=== PATIENT | male | born 1965 | race Caucasian/White ===

== ENCOUNTER 2016-11-30 18:22 | Emergency (ER) | payer SELFPAY ==
--- OUTSIDE RECORDS SUMMARY | 2016-11-30 18:25 | XMS | Clinical Summary ---
:1965 Author Organization [facility] Address [address] [place] [address] Phone Care Team Providers Name Role Phone , Primary Care Provider Unavailable Allergies Active Allergy Reactions Severity Noted Date Comments Codeine Nausea And Vomiting 10/08/2016 Current Medications Prescription Sig. Disp. Refills Start Date End Date Status esomeprazole (NEXIUM) 40 Take 40 mg by mouth Active MG capsule daily. HYDROcodone-acetaminophen Take 1 tablet by Active (NORCO 10-325) 10-325 mg mouth every 6 (six) per tablet hours as needed for Pain. Active Problems Problem Noted Date Wound dehiscence 10/09/2016 Laceration of left Achilles tendon 08/28/2016 Achilles tendon rupture, right, initial encounter 08/28/2016 Encounters Date Type Specialty Care Team Description 10/28/2016 Scanned Document 10/09/2016 Hospital Encounter Alexis Carlton MD 10/09/2016 Procedure Pass 10/09/2016 Surgery Alexis Carlton ROTATIONALLISA Christianson MD EXTREMITY 10/08/2016 Anesthesia Event Ruben Adams MD 08/30/2016 Telephone Anesthesiology [facility] Follow Up Mely from Last 3 Months Social History Tobacco Use Types Packs/Day Years Used Date Current Every Day Smoker 1 3 Smokeless Tobacco: Never Used Tobacco Cessation:Ready to Quit: Yes Comments:handout to be given dos Alcohol Use Drinks/Week oz/Week Comments Yes 35 Cans of beer 21.0 Sex Assigned at Date Recorded Not on file Last Filed Vital Signs Vital Sign Reading Time Taken Blood Pressure 177/79 10/09/2016 3:35 PM CDT Pulse 92 10/09/2016 3:35 PM CDT Temperature 36.8 C (98.2 F) 10/09/2016 3:35 PM CDT Respiratory Rate 16 10/09/2016 3:35 PM CDT Oxygen Saturation 95% 10/09/2016 3:35 PM CDT Inhaled Oxygen Concentration - - Weight 86.9 kg (191 lb 9.6 oz) 10/09/2016 11:21 AM CDT Height 170.2 cm (5' 7") 10/09/2016 11:21 AM CDT Body Mass Index 30.01 10/09/2016 11:21 AM CDT Plan of Treatment Not on file Implants Implanted Type Area Branch [employer] Device Expiration Model / Identifier Date Serial / Lot Sys Bio Comp Achilles Mid Sub [id number] - [id number] [place] Left: ARTHREX 11/07/2017 [id number] / Implanted:Qty: 1 on 08/28/2016 by Alexis Carlton MD throscopy Ankle / [id number] Explanted Type Area Branch Retail Executive Device Expiration Date Model / Identifier Serial / Lot Sut Surg Stl 7 18g 18in Mp Ns Ds18 - [id number] [place] J &J:ETHICON DS18 / Explanted:Qty: 1 on 08/28/2016 throscopy / Procedures Procedure Name Priority Date/Time Associated Diagnosis Comments I&D,ABSCESS LEG 10/09/2016 12:30 PM Postoperative wound CDT infection, initial encounter Special Needs (PRONE POSITION) FLAP,ROTATIONAL-LOWER EXTREMITY 10/09/2016 12:30 PM CDT Postoperative wound infection, initial encounter Special Needs (PRONE POSITION) from Last 3 Months Results Anaerobic culture (10/09/2016 1:31 PM) Component Value Ref Range Result 2+ Prevotella species(A) Result 3+ Peptoniphilus asaccharolyticus(A) Specimen Performing Laboratory Wound - Leg, Left Lower [address] [address] Surgically obtained culture + gram stain (10/09/2016 1:31 PM) Component Value Ref Range Result 4+ Enterococcus species(A) Result 3+ Staphylococcus aureus(A) Result 3+ Beta-hemolytic streptococcus group C, by serological grouping(A) Result 2+ Viridans Streptococcus(A) Gram Stain Result 4+ WBCs Gram Stain Result 3+ gram positive cocci in pairs Specimen Performing Laboratory Wound - Leg, Left Lower [facility] [address] [address] Organism Antibiotic Method Susceptibility Enterococcus species Ampicillin <=2: Susceptible Enterococcus species Linezolid 2: Susceptible Enterococcus species Tetracycline Comment:This is a corrected result. Previous result was Resistant (>=16) on 10/13/2016 at 0811 CDT Enterococcus species Vancomycin 2: Susceptible Staphylococcus aureus Clindamycin 0.25: Susceptible Staphylococcus aureus Erythromycin <=0.25: Susceptible Staphylococcus aureus Linezolid 2: Susceptible Staphylococcus aureus Oxacillin <=0.25: Susceptible Staphylococcus aureus Rifampin <=0.5: Susceptible Staphylococcus aureus Tetracycline <=1: Susceptible Staphylococcus aureus Trimethoprim + Sulfamethoxazole <=10: Susceptible Staphylococcus aureus Vancomycin <=0.5: Susceptible from Last 3 Months
[2016-11-30 18:56] LABS: #Basophils 0.1 thou/uL (0.0-0.2); #Eosinphils 0.2 thou/uL (0.0-0.7); #Lymphocytes 1.5 thou/uL (1.20-3.40); #Monocytes 1.3 thou/uL (0.11-0.59); %Basophils 0.4 % (0.0-1.0); %Eosinophils 1.2 % (0.0-10.0); %Lymphocytes 9.9 % (21.0-51.0); %Monocytes 8.9 % (0.0-10.0); Hematocrit 51.5 % (42.0-52.0); Mean Platelet Volume 6.9 fL (7.4-10.4); Red Blood Cell (RBC) Count 5.25 mill/uL (4.70-6.10); White Blood Cell (WBC) Count 15.1 thou/uL (4.8-10.8)
[2016-11-30 19:22] LABS: ALT (SGPT) 10 U/L (8-55); AST (SGOT) 14 U/L (5-34); Alkaline Phosphatase 84 U/L (40-150); Anion Gap 17 mmol/L (10-20); BUN (Urea Nitrogen) 8 mg/dL (8.9-20.6); Bilirubin, Total 0.6 mg/dL (0.2-1.2); Calc. Creatinine Clearance 0 mL/min (70-130); Calcium 9.7 mg/dL (7.8-10.44); Carbon Dioxide 23 mmol/L (22-29); Chloride 103 mmol/L (98-107); Estimated GFR-MDRD 87; Globulin 4.5 g/dL (2.4-3.5)
== END 2016-11-30 21:32 | disposition home or self-care (01) ==
LOC: ERS 18:22
DX: M96.830 Postprocedural hemorrhage of a musculoskeletal structure following a musculoskeletal system procedure (principal); F41.9 Anxiety disorder, unspecified; F17.210 Nicotine dependence, cigarettes, uncomplicated
CPT/HCPCS: 36415; 80053; 85025; 99283

== ENCOUNTER 2021-11-20 10:51 | Inpatient (IN) | payer SELFPAY ==
[2021-11-20 13:42] LABS: Bilirubin Negative (Negative); Blood, Urine Negative (Negative); Clarity Clear (Clear); Glucose, Urine (Dipstick) Normal (Negative); Ketone, Urine Negative (Negative); Leukocyte Negative Leu/uL (Negative); Nitrite Negative (Negative); Protein, Urine (Dipstick) Negative (Neg-Trace); Urobilinogen Normal mg/dL (Less than 2); pH, Urine 6.5 (5.0-9.0)
[2021-11-20] MEDS ORDERED: Morphine 4 MG/ML VIAL ONE (14:05)
[2021-11-20] MEDS ORDERED: Heparin 1,000 UNITS/ML VIAL ONE (14:33)
[2021-11-20] MEDS ORDERED: Cefepime 2 GM VIAL ONE (17:33)
[2021-11-20] MEDS ORDERED: Fentanyl 100 MCG/2 ML VIAL ONE (17:36)
[2021-11-20] MEDS ORDERED: Ondansetron PF 4 MG/2 ML Vial IVP PRN (19:25)
[2021-11-20] MEDS ORDERED: Acetaminophen 325 MG TAB PO PRN (19:25)
[2021-11-20] MEDS ORDERED: Vancomycin HCl 1 GM in Sodium Chloride 0.9% 250 ML 250 ML IVPB SCH (19:25)
[2021-11-20] MEDS ORDERED: diphenhydrAMINE 25 MG CAP PO PRN (19:25)
[2021-11-20] MEDS ORDERED: HYDROcodone/Acetaminophen 7.5/325 mg Tablet PO PRN (19:25)
[2021-11-20] MEDS ORDERED: Polyethylene Glycol 3350 17 GM Packet PO PRN (19:28)
[2021-11-20] MEDS ORDERED: Dexamethasone 4 mg/ml Vial ONE (21:52)
[2021-11-20] MEDS ORDERED: metroNIDAZOLE 500 MG/100 ML BAG ONE (21:53)
[2021-11-21 00:04] LABS: SARS-CoV-2 NAA Rapid Test Not Detected (NotDetected)
[2021-11-21] MEDS: metroNIDAZOLE 500 MG in Premix Bag 1 BAG IVPB SCH ×4 (00:06→21:11)
[2021-11-21] MEDS: Docusate 100 MG CAP PO SCH ×3 (00:06→19:21)
[2021-11-21] MEDS: Dexamethasone 4 MG TAB PO SCH ×5 (00:06→19:21)
[2021-11-21] MEDS ORDERED: VANCOMYCIN 1.75 GM/500 ML BAG 1.75 GM in Premix Bag 1 BAG IVPB SCH (03:30)
[2021-11-21 04:22] LABS: PTT 29.1 sec (22.9-36.1); Prothrombin Time 13.4 sec (12.0-14.7)
[2021-11-21] MEDS: Cefepime 2 GM in Sodium Chloride 0.9% 100 ML IVPB SCH ×2 (05:18→15:25)
[2021-11-21] MEDS ORDERED: Thrombin 5000 UNITS/5 ML VIAL ONE (06:50)
[2021-11-21] MEDS ORDERED: HYDROmorphone 2 MG/ML VIAL ONE ×2 (07:07→10:48)
[2021-11-21] MEDS ORDERED: SUGAMMADEX SODIUM 200 MG/2 ML VIAL ONE (07:08)
[2021-11-21] MEDS ORDERED: Esmolol 100 MG/10 ML VIAL ONE ×2 (07:08→07:35)
[2021-11-21] MEDS ORDERED: Succinylcholine 200 MG/10 ml SYRINGE FS ONE (07:08)
[2021-11-21] MEDS ORDERED: Propofol 500 MG/50 ML VIAL ONE ×2 (07:08→08:37)
[2021-11-21] MEDS ORDERED: Rocuronium Bromide 50 MG/5 ML VIAL ONE (07:08)
[2021-11-21] MEDS ORDERED: Dexmedetomidine 200 MCG/2 ML VIAL ONE (07:27)
[2021-11-21] MEDS ORDERED: Phenylephrine 10 MG/ML VIAL ONE (07:35)
[2021-11-21] MEDS ORDERED: Lidocaine 1% MPF 2 ML VIAL ONE (07:35)
[2021-11-21] MEDS ORDERED: Labetalol HCl 100 MG/20 ML VIAL ONE (07:35)
[2021-11-21] MEDS ORDERED: Ondansetron PF 4 MG/2 ML Vial ONE (07:35)
[2021-11-21] MEDS ORDERED: Dexamethasone 20 MG/5 ML VIAL ONE (07:35)
[2021-11-21] MEDS ORDERED: Rocuronium Bromide 10 MG/ML (10ML VIAL) ONE (07:35)
[2021-11-21] MEDS ORDERED: Ketorolac Tromethamine 30 MG/ML VIAL ONE (07:35)
[2021-11-21] MEDS ORDERED: PROPOFOL 200 MG/20 ML VIAL ONE (07:35)
[2021-11-21] MEDS ORDERED: Ondansetron HCl/PF 4 MG/2 ML Vial IVP PRN (09:12)
[2021-11-21] MEDS ORDERED: HYDROmorphone 2 MG/ML VIAL SLOW IVP PRN (09:12)
[2021-11-21] MEDS ORDERED: Promethazine HCl 25 MG/ML VIAL IVPB PRN (09:12)
[2021-11-21] MEDS ORDERED: Meperidine HCl/PF 25 MG/ML VIAL SLOW IVP PRN (09:12)
[2021-11-21] MEDS ORDERED: Albumin 5% 250 ML ONE (09:37)
[2021-11-21] MEDS ORDERED: PROPOFOL 20 ML ONE (10:23)
[2021-11-21] MEDS: Sodium Chloride 0.9% 1,000 ML IV SCH (12:01)
[2021-11-21 12:38] LABS: #Basophils 0.1 thou/uL (0.0-0.2); #Lymphocytes 0.8 thou/uL (1.20-3.40); #Monocytes 0.3 thou/uL (0.11-0.59); %Basophils 0.7 % (0.0-1.0); %Eosinophils 0.2 % (0.0-10.0); %Lymphocytes 5.4 % (21.0-51.0); %Monocytes 1.8 % (0.0-10.0); Hemoglobin 15.1 g/dL (14.0-18.0); Mean Corpuscular HGB CONC 33.2 g/dL (32.0-36.0); Mean Corpuscular Hemoglobin 30.5 pg (27.0-31.0); Mean Platelet Volume 6.8 fL (7.4-10.4); Platelet Count 312 thou/uL (130-400); RBC Distribution Width 11.6 % (11.5-14.5); Red Blood Cell (RBC) Count 4.94 mill/uL (4.70-6.10); White Blood Cell (WBC) Count 15.2 thou/uL (4.8-10.8)
[2021-11-21 13:06] LABS: Anion Gap 15 mmol/L (10-20); BUN (Urea Nitrogen) 18 mg/dL (8.4-25.7); Calc. Creatinine Clearance 86 mL/min (70-130); Calcium 9.1 mg/dL (7.8-10.44); Carbon Dioxide 20 mmol/L (22-29); Chloride 103 mmol/L (98-107); Estimated GFR 82; Glucose 155 mg/dL (70-105); Potassium 4.4 mmol/L (3.5-5.1); Sodium 134 mmol/L (136-145)
[2021-11-21] MEDS: Fentanyl 100 MCG/2 ML VIAL SLOW IVP PRN ×2 (15:23→21:29)
[2021-11-21] MEDS: VANCOMYCIN 1.25 GM/250 ML BAG 1.25 GM in Premix Bag 1 BAG IVPB SCH (15:25)
[2021-11-21] MEDS: HYDROcodone/Acetaminophen 7.5/325 mg Tablet PO PRN ×2 (15:25→21:28)
[2021-11-21] MEDS: HYDROmorphone 0.5 MG/0.5 ML SYRINGE SLOW IVP PRN (19:21)
[2021-11-21] MEDS ORDERED: Pantoprazole 40 MG VIAL IVP SCH (20:45)
[2021-11-21] MEDS: hydrALAZINE 20 MG/ML VIAL SLOW IVP PRN (21:10)
[2021-11-22] MEDS: Dexamethasone 4 MG TAB PO SCH ×4 (02:29→21:35)
[2021-11-22] MEDS: VANCOMYCIN 1.25 GM/250 ML BAG 1.25 GM in Premix Bag 1 BAG IVPB SCH ×3 (02:29→18:46)
[2021-11-22] MEDS: HYDROmorphone 0.5 MG/0.5 ML SYRINGE SLOW IVP PRN ×2 (02:55→08:10)
[2021-11-22] MEDS: Sodium Chloride 0.9% 1,000 ML IV SCH ×3 (03:06→17:42)
[2021-11-22] MEDS: HYDROcodone/Acetaminophen 7.5/325 mg Tablet PO PRN ×2 (04:19→14:14)
[2021-11-22] MEDS: Cefepime 2 GM in Sodium Chloride 0.9% 100 ML IVPB SCH ×2 (04:20→17:42)
[2021-11-22] MEDS: Fentanyl 100 MCG/2 ML VIAL SLOW IVP PRN (04:43)
[2021-11-22] MEDS: metroNIDAZOLE 500 MG in Premix Bag 1 BAG IVPB SCH ×3 (05:04→21:35)
[2021-11-22] MEDS: hydrALAZINE 20 MG/ML VIAL SLOW IVP PRN ×2 (06:24→22:00)
[2021-11-22] MEDS: Docusate 100 MG CAP PO SCH ×2 (08:12→21:35)
[2021-11-22] MEDS: Pantoprazole 40 MG VIAL IVP SCH (08:12)
[2021-11-22] MEDS ORDERED: HYDROmorphone 0.5 MG/0.5 ML SYRINGE SLOW IVP SCH (15:15)
[2021-11-22 16:43] LABS: Anion Gap 12 mmol/L (10-20); Carbon Dioxide 19 mmol/L (22-29); Chloride 107 mmol/L (98-107); Potassium 4.3 mmol/L (3.5-5.1); Sodium 134 mmol/L (136-145)
[2021-11-22 16:44] LABS: BUN (Urea Nitrogen) 20 mg/dL (8.4-25.7); Calc. Creatinine Clearance 93 mL/min (70-130); Calcium 8.7 mg/dL (7.8-10.44); Estimated GFR 87; Glucose 146 mg/dL (70-105)
[2021-11-23] MEDS: tiZANidine HCl 4 MG TAB PO PRN ×3 (00:49→15:57)
[2021-11-23] MEDS: Fentanyl 100 MCG/2 ML VIAL SLOW IVP PRN ×3 (00:49→20:25)
[2021-11-23] MEDS: hydrALAZINE 20 MG/ML VIAL SLOW IVP PRN (01:16)
[2021-11-23] MEDS: Dexamethasone 4 MG TAB PO SCH ×4 (03:09→20:24)
[2021-11-23] MEDS: Sodium Chloride 0.9% 1,000 ML IV SCH ×2 (03:29→17:00)
[2021-11-23] MEDS: HYDROcodone/Acetaminophen 7.5/325 mg Tablet PO PRN ×3 (03:30→17:03)
[2021-11-23] MEDS: Cefepime 2 GM in Sodium Chloride 0.9% 100 ML IVPB SCH ×2 (05:46→17:00)
[2021-11-23] MEDS: VANCOMYCIN 1.25 GM/250 ML BAG 1.25 GM in Premix Bag 1 BAG IVPB SCH ×2 (05:47→17:35)
[2021-11-23] MEDS: metroNIDAZOLE 500 MG in Premix Bag 1 BAG IVPB SCH ×3 (06:14→22:32)
[2021-11-23] MEDS: Amlodipine 5 MG TAB PO SCH (08:55)
[2021-11-23] MEDS: Docusate 100 MG CAP PO SCH ×2 (08:55→20:24)
[2021-11-23] MEDS: Pantoprazole 40 MG VIAL IVP SCH (08:56)
[2021-11-23 14:03] LABS: Hemoglobin 15.8 g/dL (14.0-18.0); Mean Corpuscular HGB CONC 33.2 g/dL (32.0-36.0); Mean Corpuscular Hemoglobin 31.4 pg (27.0-31.0); Mean Corpuscular Volume 94.4 fL (78.0-98.0); Mean Platelet Volume 7.4 fL (7.4-10.4); Platelet Count 331 thou/uL (130-400); RBC Distribution Width 12.1 % (11.5-14.5); Red Blood Cell (RBC) Count 5.02 mill/uL (4.70-6.10)
[2021-11-23 14:22] LABS: Lymphocytes 9 % (21-51); MDiff Complete? YES; Monocytes 1 % (0-10); Neutrophil 90 % (42-75); Platelet Morphology Comment Appears Adequate; RBC Morphology Normal
[2021-11-23 14:43] LABS: Anion Gap 18 mmol/L (10-20); BUN (Urea Nitrogen) 19 mg/dL (8.4-25.7); Calc. Creatinine Clearance 98 mL/min (70-130); Calcium 9.2 mg/dL (7.8-10.44); Carbon Dioxide 15 mmol/L (22-29); Chloride 106 mmol/L (98-107); Estimated GFR 95; Glucose 178 mg/dL (70-105); Potassium 4.2 mmol/L (3.5-5.1); Sodium 135 mmol/L (136-145)
[2021-11-24] MEDS: Dexamethasone 4 MG TAB PO SCH ×4 (02:26→19:40)
[2021-11-24] MEDS: Cefepime 2 GM in Sodium Chloride 0.9% 100 ML IVPB SCH ×2 (05:44→17:57)
[2021-11-24] MEDS: metroNIDAZOLE 500 MG in Premix Bag 1 BAG IVPB SCH ×3 (05:44→22:18)
[2021-11-24] MEDS: Sodium Chloride 0.9% 1,000 ML IV SCH ×2 (05:47→18:08)
[2021-11-24 07:26] LABS: #Lymphocytes 1.7 thou/uL (1.20-3.40); #Monocytes 1.4 thou/uL (0.11-0.59); #Neutrophils 15.4 thou/uL (1.40-6.50); %Basophils 0.2 % (0.0-1.0); %Eosinophils 0.2 % (0.0-10.0); %Monocytes 7.6 % (0.0-10.0); Hemoglobin 15.1 g/dL (14.0-18.0); Mean Corpuscular HGB CONC 33.5 g/dL (32.0-36.0); Mean Corpuscular Hemoglobin 31.6 pg (27.0-31.0); Mean Corpuscular Volume 94.3 fL (78.0-98.0); Mean Platelet Volume 7.4 fL (7.4-10.4); Platelet Count 317 thou/uL (130-400); RBC Distribution Width 11.7 % (11.5-14.5); Red Blood Cell (RBC) Count 4.77 mill/uL (4.70-6.10); White Blood Cell (WBC) Count 18.6 thou/uL (4.8-10.8)
[2021-11-24 07:48] LABS: Anion Gap 12 mmol/L (10-20); BUN (Urea Nitrogen) 19 mg/dL (8.4-25.7); Calc. Creatinine Clearance 109 mL/min (70-130); Calcium 8.7 mg/dL (7.8-10.44); Carbon Dioxide 21 mmol/L (22-29); Chloride 106 mmol/L (98-107); Estimated GFR 104; Glucose 152 mg/dL (70-105); Potassium 4.2 mmol/L (3.5-5.1); Sodium 135 mmol/L (136-145)
[2021-11-24 07:49] LABS: Vancomycin, Trough 12.4 ug/mL
[2021-11-24] MEDS ORDERED: Bisacodyl 5 MG TAB PO PRN (08:03)
[2021-11-24] MEDS ORDERED: Bisacodyl 5 MG TAB PO SCH (09:00)
[2021-11-24] MEDS: Docusate 100 MG CAP PO SCH ×2 (09:46→19:41)
[2021-11-24] MEDS: HYDROcodone/Acetaminophen 10/325 mg Tablet PO PRN ×3 (09:47→19:48)
[2021-11-24] MEDS: Amlodipine 5 MG TAB PO SCH (09:47)
[2021-11-24] MEDS: VANCOMYCIN 1.25 GM/250 ML BAG 1.25 GM in Premix Bag 1 BAG IVPB SCH ×3 (09:48→20:52)
[2021-11-24] MEDS: Pantoprazole 40 MG VIAL IVP SCH (09:49)
[2021-11-24] MEDS ORDERED: Amlodipine 5 MG TAB PO SCH (14:30)
[2021-11-24] MEDS: Morphine 2 MG/ML VIAL SLOW IVP PRN (18:02)
[2021-11-25] MEDS: Dexamethasone 4 MG TAB PO SCH ×4 (01:54→20:31)
[2021-11-25] MEDS: Cefepime 2 GM in Sodium Chloride 0.9% 100 ML IVPB SCH ×2 (05:05→17:44)
[2021-11-25] MEDS: Morphine 2 MG/ML VIAL SLOW IVP PRN ×2 (05:14→11:08)
[2021-11-25] MEDS: metroNIDAZOLE 500 MG in Premix Bag 1 BAG IVPB SCH ×3 (05:34→23:15)
[2021-11-25] MEDS: VANCOMYCIN 1.25 GM/250 ML BAG 1.25 GM in Premix Bag 1 BAG IVPB SCH ×2 (08:37→21:38)
[2021-11-25] MEDS: HYDROcodone/Acetaminophen 10/325 mg Tablet PO PRN ×3 (08:39→20:32)
[2021-11-25] MEDS: hydrALAZINE 20 MG/ML VIAL SLOW IVP PRN (08:40)
[2021-11-25] MEDS: Docusate 100 MG CAP PO SCH ×2 (08:40→20:31)
[2021-11-25] MEDS: Amlodipine 10 MG TAB PO SCH (08:40)
[2021-11-25] MEDS ORDERED: Magnesium Citrate 300 ML BOT PO SCH (08:45)
[2021-11-25] MEDS: Pantoprazole 40 MG VIAL IVP SCH (09:08)
[2021-11-25] MEDS ORDERED: Bisacodyl 5 MG TAB PO SCH (12:00)
[2021-11-25] MEDS: Sodium Chloride 0.9% 1,000 ML IV SCH ×2 (15:01→22:42)
[2021-11-25] MEDS: hydrALAZINE 25 MG TAB PO SCH ×2 (15:02→20:31)
[2021-11-26] MEDS: HYDROcodone/Acetaminophen 10/325 mg Tablet PO PRN ×5 (00:22→20:41)
[2021-11-26] MEDS: Dexamethasone 4 MG TAB PO SCH ×4 (02:58→20:41)
[2021-11-26] MEDS: Cefepime 2 GM in Sodium Chloride 0.9% 100 ML IVPB SCH ×2 (04:43→17:29)
[2021-11-26] MEDS: metroNIDAZOLE 500 MG in Premix Bag 1 BAG IVPB SCH ×3 (05:49→22:22)
[2021-11-26] MEDS: Amlodipine 10 MG TAB PO SCH (08:59)
[2021-11-26] MEDS: Docusate 100 MG CAP PO SCH ×2 (09:00→20:41)
[2021-11-26] MEDS: hydrALAZINE 25 MG TAB PO SCH ×3 (09:01→20:41)
[2021-11-26] MEDS: Pantoprazole 40 MG VIAL IVP SCH (09:01)
[2021-11-26] MEDS: VANCOMYCIN 1.25 GM/250 ML BAG 1.25 GM in Premix Bag 1 BAG IVPB SCH ×2 (09:16→20:42)
[2021-11-26] MEDS ORDERED: Nicotine 21 MG PATCH TOP SCH (09:45)
[2021-11-26] MEDS ORDERED: Nicotine 14 MG PATCH TD SCH (09:45)
[2021-11-26] MEDS: Sodium Chloride 0.9% 1,000 ML IV SCH (11:48)
[2021-11-26 19:52] LABS: Vancomycin, Trough 14.2 ug/mL
[2021-11-26] MEDS: tiZANidine HCl 4 MG TAB PO PRN (20:41)
[2021-11-26] MEDS: Morphine 2 MG/ML VIAL SLOW IVP PRN (21:52)
[2021-11-27] MEDS: Sodium Chloride 0.9% 1,000 ML IV SCH ×2 (00:35→04:23)
[2021-11-27] MEDS: HYDROcodone/Acetaminophen 10/325 mg Tablet PO PRN ×6 (00:45→21:00)
[2021-11-27] MEDS: Dexamethasone 4 MG TAB PO SCH ×3 (01:15→17:29)
[2021-11-27] MEDS: Cefepime 2 GM in Sodium Chloride 0.9% 100 ML IVPB SCH ×2 (04:20→17:28)
[2021-11-27] MEDS: tiZANidine HCl 4 MG TAB PO PRN ×3 (04:45→22:34)
[2021-11-27] MEDS: metroNIDAZOLE 500 MG in Premix Bag 1 BAG IVPB SCH ×3 (05:32→22:35)
[2021-11-27] MEDS: Docusate 100 MG CAP PO SCH ×2 (08:39→20:47)
[2021-11-27] MEDS: hydrALAZINE 25 MG TAB PO SCH ×3 (08:40→20:48)
[2021-11-27] MEDS: Amlodipine 10 MG TAB PO SCH (08:40)
[2021-11-27] MEDS: Nicotine 21 MG PATCH TD SCH (08:40)
[2021-11-27] MEDS: VANCOMYCIN 1.25 GM/250 ML BAG 1.25 GM in Premix Bag 1 BAG IVPB SCH ×2 (08:49→20:48)
[2021-11-28] MEDS: Sodium Chloride 0.9% 1,000 ML IV SCH ×2 (00:11→17:56)
[2021-11-28] MEDS: Dexamethasone 4 MG TAB PO SCH ×2 (00:29→04:55)
[2021-11-28] MEDS: HYDROcodone/Acetaminophen 10/325 mg Tablet PO PRN ×6 (00:29→22:36)
[2021-11-28] MEDS: Cefepime 2 GM in Sodium Chloride 0.9% 100 ML IVPB SCH ×2 (04:55→17:57)
[2021-11-28] MEDS: metroNIDAZOLE 500 MG in Premix Bag 1 BAG IVPB SCH ×3 (05:54→22:37)
[2021-11-28] MEDS: Docusate 100 MG CAP PO SCH ×2 (08:33→20:33)
[2021-11-28] MEDS: VANCOMYCIN 1.25 GM/250 ML BAG 1.25 GM in Premix Bag 1 BAG IVPB SCH ×2 (08:33→20:54)
[2021-11-28] MEDS: Amlodipine 10 MG TAB PO SCH (08:33)
[2021-11-28] MEDS: hydrALAZINE 25 MG TAB PO SCH ×3 (08:33→20:33)
[2021-11-28] MEDS: Nicotine 21 MG PATCH TD SCH (08:35)
[2021-11-28] MEDS: Dexamethasone 1 MG TAB PO SCH ×3 (11:42→22:36)
[2021-11-28 19:29] LABS: Vancomycin, Trough 11.2 ug/mL
[2021-11-28] MEDS: Vancomycin 1.5 GRAM/300 ML BAG 1.5 GM in Premix Bag 1 BAG IVPB SCH (20:32)
[2021-11-28] MEDS: tiZANidine HCl 4 MG TAB PO PRN (20:33)
[2021-11-29] MEDS: HYDROcodone/Acetaminophen 10/325 mg Tablet PO PRN ×4 (04:23→21:14)
[2021-11-29] MEDS: Cefepime 2 GM in Sodium Chloride 0.9% 100 ML IVPB SCH ×2 (04:23→17:44)
[2021-11-29] MEDS: Sodium Chloride 0.9% 1,000 ML IV SCH ×2 (04:30→21:16)
[2021-11-29] MEDS: Dexamethasone 1 MG TAB PO SCH ×4 (05:38→23:25)
[2021-11-29] MEDS: metroNIDAZOLE 500 MG in Premix Bag 1 BAG IVPB SCH ×3 (05:38→23:25)
[2021-11-29 06:49] LABS: SARS-CoV-2 NAA Rapid Test Not Detected (NotDetected)
[2021-11-29] MEDS: Nicotine 21 MG PATCH TD SCH (08:45)
[2021-11-29] MEDS: hydrALAZINE 25 MG TAB PO SCH ×3 (08:47→21:13)
[2021-11-29] MEDS: Amlodipine 10 MG TAB PO SCH (08:47)
[2021-11-29] MEDS: Docusate 100 MG CAP PO SCH ×2 (08:47→21:13)
[2021-11-29] MEDS: Vancomycin 1.5 GRAM/300 ML BAG 1.5 GM in Premix Bag 1 BAG IVPB SCH ×2 (08:49→21:16)
[2021-11-29] MEDS: tiZANidine HCl 4 MG TAB PO PRN (21:15)
[2021-11-30] MEDS: Cefepime 2 GM in Sodium Chloride 0.9% 100 ML IVPB SCH ×2 (04:19→17:10)
[2021-11-30] MEDS: metroNIDAZOLE 500 MG in Premix Bag 1 BAG IVPB SCH ×3 (06:12→21:12)
[2021-11-30] MEDS: HYDROcodone/Acetaminophen 10/325 mg Tablet PO PRN ×4 (06:13→21:13)
[2021-11-30] MEDS: Dexamethasone 1 MG TAB PO SCH ×3 (06:13→17:10)
[2021-11-30] MEDS: Nicotine 21 MG PATCH TD SCH (09:40)
[2021-11-30] MEDS: Amlodipine 10 MG TAB PO SCH (09:40)
[2021-11-30] MEDS: hydrALAZINE 25 MG TAB PO SCH ×3 (09:40→21:14)
[2021-11-30] MEDS: Docusate 100 MG CAP PO SCH ×2 (09:40→21:14)
[2021-11-30] MEDS: Sodium Chloride 0.9% 1,000 ML IV SCH ×2 (09:41→22:30)
[2021-11-30 13:42] VITALS: BMI 26.0
[2021-11-30 16:53] LABS: Vancomycin, Trough 8.4 ug/mL
[2021-11-30] MEDS: Vancomycin 1.5 GRAM/300 ML BAG 1.5 GM in Premix Bag 1 BAG IVPB SCH ×2 (17:18→18:03)
[2021-12-01] MEDS: Dexamethasone 1 MG TAB PO SCH ×2 (00:03→05:30)
[2021-12-01] MEDS: HYDROcodone/Acetaminophen 10/325 mg Tablet PO PRN ×4 (05:29→23:31)
[2021-12-01] MEDS: Cefepime 2 GM in Sodium Chloride 0.9% 100 ML IVPB SCH ×2 (05:29→16:56)
[2021-12-01] MEDS: Vancomycin 1.5 GRAM/300 ML BAG 1.5 GM in Premix Bag 1 BAG IVPB SCH ×2 (06:12→18:17)
[2021-12-01] MEDS: metroNIDAZOLE 500 MG in Premix Bag 1 BAG IVPB SCH ×4 (07:17→23:33)
[2021-12-01] MEDS: Amlodipine 10 MG TAB PO SCH (08:11)
[2021-12-01] MEDS: hydrALAZINE 25 MG TAB PO SCH ×3 (08:11→21:38)
[2021-12-01] MEDS: Docusate 100 MG CAP PO SCH ×2 (08:12→21:37)
[2021-12-01] MEDS: Nicotine 21 MG PATCH TD SCH (08:12)
[2021-12-01] MEDS: Sodium Chloride 0.9% 1,000 ML IV SCH (10:28)
[2021-12-01] MEDS: tiZANidine HCl 4 MG TAB PO PRN (21:37)
[2021-12-02] MEDS: HYDROcodone/Acetaminophen 10/325 mg Tablet PO PRN ×3 (05:09→20:16)
[2021-12-02] MEDS: Cefepime 2 GM in Sodium Chloride 0.9% 100 ML IVPB SCH ×2 (05:09→17:56)
[2021-12-02 05:30] LABS: #Eosinphils 0.4 thou/uL (0.0-0.7); #Lymphocytes 1.8 thou/uL (1.20-3.40); #Monocytes 1.4 thou/uL (0.11-0.59); #Neutrophils 9.2 thou/uL (1.40-6.50); %Basophils 0.2 % (0.0-1.0); %Eosinophils 3.5 % (0.0-10.0); %Lymphocytes 14.1 % (21.0-51.0); %Monocytes 10.6 % (0.0-10.0); %Neutrophils 71.6 % (42.0-75.0); Hemoglobin 14.4 g/dL (14.0-18.0); Mean Corpuscular HGB CONC 32.2 g/dL (32.0-36.0); Mean Corpuscular Hemoglobin 30.6 pg (27.0-31.0); Mean Corpuscular Volume 94.9 fL (78.0-98.0); Mean Platelet Volume 7.1 fL (7.4-10.4); Platelet Count 263 thou/uL (130-400); White Blood Cell (WBC) Count 12.9 thou/uL (4.8-10.8)
[2021-12-02 06:17] LABS: Anion Gap 10 mmol/L (10-20); BUN (Urea Nitrogen) 17 mg/dL (8.4-25.7); Calc. Creatinine Clearance 131 mL/min (70-130); Calcium 8.7 mg/dL (7.8-10.44); Carbon Dioxide 27 mmol/L (22-29); Chloride 104 mmol/L (98-107); Estimated GFR 109; Glucose 94 mg/dL (70-105); Potassium 4.3 mmol/L (3.5-5.1); Sodium 137 mmol/L (136-145)
[2021-12-02 06:27] LABS: Vancomycin, Trough 12.4 ug/mL
[2021-12-02] MEDS: Sodium Chloride 0.9% 1,000 ML IV SCH ×2 (06:42→14:22)
[2021-12-02] MEDS: Vancomycin 1.5 GRAM/300 ML BAG 1.5 GM in Premix Bag 1 BAG IVPB SCH (06:44)
[2021-12-02] MEDS: hydrALAZINE 25 MG TAB PO SCH ×3 (08:50→20:15)
[2021-12-02] MEDS: Amlodipine 10 MG TAB PO SCH (08:50)
[2021-12-02] MEDS: Nicotine 21 MG PATCH TD SCH (08:50)
[2021-12-02] MEDS: Docusate 100 MG CAP PO SCH ×2 (08:50→20:15)
[2021-12-02] MEDS: metroNIDAZOLE 500 MG in Premix Bag 1 BAG IVPB SCH ×2 (08:51→16:01)
[2021-12-02] MEDS: VANCOMYCIN 1.25 GM/250 ML BAG 1.25 GM in Premix Bag 1 BAG IVPB SCH ×2 (13:14→21:32)
[2021-12-02] MEDS: Morphine 2 MG/ML VIAL SLOW IVP PRN (21:31)
[2021-12-03] MEDS: tiZANidine HCl 4 MG TAB PO PRN (01:32)
[2021-12-03] MEDS: metroNIDAZOLE 500 MG in Premix Bag 1 BAG IVPB SCH ×3 (01:35→16:36)
[2021-12-03] MEDS: Sodium Chloride 0.9% 1,000 ML IV SCH ×2 (01:39→18:12)
[2021-12-03] MEDS: Cefepime 2 GM in Sodium Chloride 0.9% 100 ML IVPB SCH ×2 (05:22→17:58)
[2021-12-03] MEDS: HYDROcodone/Acetaminophen 10/325 mg Tablet PO PRN ×4 (05:29→20:38)
[2021-12-03] MEDS ORDERED: Activase 2 MG VIAL CATH SCH (06:15)
[2021-12-03] MEDS: VANCOMYCIN 1.25 GM/250 ML BAG 1.25 GM in Premix Bag 1 BAG IVPB SCH ×3 (07:23→20:37)
[2021-12-03] MEDS: Docusate 100 MG CAP PO SCH ×2 (09:10→20:37)
[2021-12-03] MEDS: hydrALAZINE 25 MG TAB PO SCH ×3 (09:10→20:37)
[2021-12-03] MEDS: Nicotine 21 MG PATCH TD SCH (09:10)
[2021-12-03] MEDS: Amlodipine 10 MG TAB PO SCH (09:10)
[2021-12-03 10:42] LABS: Vancomycin, Trough 9.8 ug/mL
[2021-12-04] MEDS: metroNIDAZOLE 500 MG in Premix Bag 1 BAG IVPB SCH ×4 (00:01→23:53)
[2021-12-04] MEDS: HYDROcodone/Acetaminophen 10/325 mg Tablet PO PRN ×5 (03:39→20:56)
[2021-12-04] MEDS: Cefepime 2 GM in Sodium Chloride 0.9% 100 ML IVPB SCH ×2 (04:19→17:34)
[2021-12-04 04:37] LABS: #Eosinphils 0.6 thou/uL (0.0-0.7); #Lymphocytes 1.5 thou/uL (1.20-3.40); #Monocytes 1.3 thou/uL (0.11-0.59); #Neutrophils 8.6 thou/uL (1.40-6.50); %Basophils 0.2 % (0.0-1.0); %Lymphocytes 12.3 % (21.0-51.0); %Monocytes 10.6 % (0.0-10.0); %Neutrophils 71.8 % (42.0-75.0); Hemoglobin 13.9 g/dL (14.0-18.0); Mean Corpuscular HGB CONC 32.1 g/dL (32.0-36.0); Mean Corpuscular Hemoglobin 30.6 pg (27.0-31.0); Mean Corpuscular Volume 95.3 fL (78.0-98.0); Mean Platelet Volume 7.1 fL (7.4-10.4); Platelet Count 276 thou/uL (130-400); RBC Distribution Width 12.3 % (11.5-14.5); Red Blood Cell (RBC) Count 4.55 mill/uL (4.70-6.10)
[2021-12-04 04:54] LABS: Vancomycin, Trough 16.6 ug/mL
[2021-12-04 04:55] LABS: Anion Gap 8 mmol/L (10-20); BUN (Urea Nitrogen) 22 mg/dL (8.4-25.7); Calc. Creatinine Clearance 131 mL/min (70-130); Carbon Dioxide 28 mmol/L (22-29); Chloride 101 mmol/L (98-107); Potassium 4.3 mmol/L (3.5-5.1); Sodium 133 mmol/L (136-145)
[2021-12-04 04:56] LABS: Calcium 8.7 mg/dL (7.8-10.44); Estimated GFR 109; Glucose 120 mg/dL (70-105)
[2021-12-04] MEDS: VANCOMYCIN 1.25 GM/250 ML BAG 1.25 GM in Premix Bag 1 BAG IVPB SCH ×3 (06:02→21:02)
[2021-12-04] MEDS: Sodium Chloride 0.9% 1,000 ML IV SCH ×2 (06:03→20:53)
[2021-12-04] MEDS: Amlodipine 10 MG TAB PO SCH (08:36)
[2021-12-04] MEDS: Docusate 100 MG CAP PO SCH ×2 (08:36→20:57)
[2021-12-04] MEDS: hydrALAZINE 25 MG TAB PO SCH ×3 (08:36→20:57)
[2021-12-04] MEDS: Nicotine 21 MG PATCH TD SCH (08:36)
[2021-12-04 20:52] LABS: Vancomycin, Trough 19.5 ug/mL
[2021-12-04] MEDS ORDERED: Calcium Carbonate 500 MG ChewTAB PO PRN (23:25)
[2021-12-05] MEDS: HYDROcodone/Acetaminophen 10/325 mg Tablet PO PRN ×4 (02:14→19:23)
[2021-12-05] MEDS ORDERED: Lidocaine 2% Viscous Solution 10 ML, Aluminum & Magnesium Hydroxide 30 ML SSW SCH (03:00)
[2021-12-05] MEDS: Cefepime 2 GM in Sodium Chloride 0.9% 100 ML IVPB SCH ×2 (04:51→16:25)
[2021-12-05] MEDS: VANCOMYCIN 1.25 GM/250 ML BAG 1.25 GM in Premix Bag 1 BAG IVPB SCH ×3 (05:42→21:34)
[2021-12-05] MEDS: Sodium Chloride 0.9% 1,000 ML IV SCH (07:46)
[2021-12-05] MEDS: hydrALAZINE 25 MG TAB PO SCH ×3 (08:28→20:59)
[2021-12-05] MEDS: Amlodipine 10 MG TAB PO SCH (08:28)
[2021-12-05] MEDS: Docusate 100 MG CAP PO SCH ×2 (08:28→20:59)
[2021-12-05] MEDS: Nicotine 21 MG PATCH TD SCH (08:28)
[2021-12-05] MEDS: metroNIDAZOLE 500 MG in Premix Bag 1 BAG IVPB SCH ×2 (09:06→17:05)
[2021-12-05] MEDS: Acetaminophen/Codeine 30-300mg Tablet PO PRN (20:58)
[2021-12-06] MEDS: HYDROcodone/Acetaminophen 10/325 mg Tablet PO PRN ×2 (00:04→08:59)
[2021-12-06] MEDS: metroNIDAZOLE 500 MG in Premix Bag 1 BAG IVPB SCH ×3 (00:04→15:07)
[2021-12-06] MEDS: Acetaminophen/Codeine 30-300mg Tablet PO PRN (01:08)
[2021-12-06] MEDS: VANCOMYCIN 1.25 GM/250 ML BAG 1.25 GM in Premix Bag 1 BAG IVPB SCH ×2 (05:28→12:38)
[2021-12-06] MEDS: Cefepime 2 GM in Sodium Chloride 0.9% 100 ML IVPB SCH (05:28)
[2021-12-06 06:07] LABS: #Eosinphils 0.5 thou/uL (0.0-0.7); #Lymphocytes 1.4 thou/uL (1.20-3.40); #Monocytes 1.2 thou/uL (0.11-0.59); #Neutrophils 6.7 thou/uL (1.40-6.50); %Basophils 0.4 % (0.0-1.0); %Eosinophils 5.1 % (0.0-10.0); %Lymphocytes 14.3 % (21.0-51.0); %Monocytes 12.5 % (0.0-10.0); %Neutrophils 67.8 % (42.0-75.0); Mean Corpuscular Hemoglobin 32.3 pg (27.0-31.0); Mean Platelet Volume 7.1 fL (7.4-10.4); Platelet Count 292 thou/uL (130-400); RBC Distribution Width 12.2 % (11.5-14.5); Red Blood Cell (RBC) Count 4.33 mill/uL (4.70-6.10); White Blood Cell (WBC) Count 9.9 thou/uL (4.8-10.8)
[2021-12-06 06:22] LABS: ALT (SGPT) 73 U/L (8-55); AST (SGOT) 27 U/L (5-34); Albumin 3.1 g/dL (3.5-5.0); Alkaline Phosphatase 123 U/L (40-110); Anion Gap 10 mmol/L (10-20); BUN (Urea Nitrogen) 23 mg/dL (8.4-25.7); Bilirubin, Total 0.3 mg/dL (0.2-1.2); Calc. Creatinine Clearance 122 mL/min (70-130); Calcium 8.9 mg/dL (7.8-10.44); Carbon Dioxide 28 mmol/L (22-29); Chloride 102 mmol/L (98-107); Estimated GFR 107; Globulin 3.2 g/dL (2.4-3.5); Glucose 112 mg/dL (70-105); Potassium 4.4 mmol/L (3.5-5.1); Protein, Total 6.3 g/dL (6.0-8.3); Sodium 136 mmol/L (136-145)
[2021-12-06] MEDS: Amlodipine 10 MG TAB PO SCH (08:58)
[2021-12-06] MEDS: hydrALAZINE 25 MG TAB PO SCH ×2 (08:59→15:07)
[2021-12-06] MEDS: Docusate 100 MG CAP PO SCH (08:59)
[2021-12-06] MEDS: Nicotine 21 MG PATCH TD SCH (09:00)
[2021-12-06 16:40] VITALS: BP 154/94; TEMP 97.6
== END 2021-12-06 16:05 | disposition home or self-care (01) | DRG 456 ==
LOC: ERS 10:51 → IMCU/EMU 22:31 → SURG A 11-22 09:19
PROVIDERS: ADMIT Student in an Organized Health Care Education/Training Program; ATTEND Internal Medicine
PROC: 0RG70J1 Fusion of 2 to 7 Thoracic Vertebral Joints with Synthetic Substitute, Posterior Approach, Posterior Column, Open Approach (ICD-10-PCS; principal; 2021-11-21)
PROC: 00NX0ZZ Release Thoracic Spinal Cord, Open Approach (ICD-10-PCS; 2021-11-21)
PROC: 02HV33Z Insertion of Infusion Device into Superior Vena Cava, Percutaneous Approach (ICD-10-PCS; 2021-11-26)
PROC: B548ZZA Ultrasonography of Superior Vena Cava, Guidance (ICD-10-PCS; 2021-11-26)
DX: M46.24 Osteomyelitis of vertebra, thoracic region (principal); G06.1 Intraspinal abscess and granuloma; G82.20 Paraplegia, unspecified; M48.54XA Collapsed vertebra, not elsewhere classified, thoracic region, initial encounter for fracture; G95.20 Unspecified cord compression; M46.44 Discitis, unspecified, thoracic region; M43.14 Spondylolisthesis, thoracic region; Z20.822 Contact with and (suspected) exposure to COVID-19; B18.2 Chronic viral hepatitis C; F12.10 Cannabis abuse, uncomplicated; F17.210 Nicotine dependence, cigarettes, uncomplicated; R03.0 Elevated blood-pressure reading, without diagnosis of hypertension; K59.00 Constipation, unspecified; K21.9 Gastro-esophageal reflux disease without esophagitis
CPT/HCPCS: 36415; 36569; 76000; 80048; 80053; 80202; 84145; 85025; 85610; 85652; 85730; 86140; 86850; 86900; 86901; 87070; 87086; 87205; 93970; 96365; 96375; C1713; C1751; C1768; C1776; C9113; J0360; J0692; J1100; J1170; J1644; J1885; J2270; J2370; J2405; J2704; J2997; J3010; J3370; J3490; J7050; J8540; P9045; U0002; U0003; U0005

== ENCOUNTER 2023-02-08 19:23 | Emergency (ER) | payer SELFPAY ==
[2023-02-08] MEDS ORDERED: cefTRIAXone (ROCEPHIN) 500 MG VIAL ONE (20:38)
[2023-02-08] MEDS ORDERED: Azithromycin 250 MG TAB ONE (20:38)
[2023-02-08] MEDS ORDERED: Lidocaine 1% MPF 2 ML VIAL ONE (20:41)
[2023-02-09 04:28] LABS: Chlam.trachomatis by PCR,Urine DETECTED (NotDetected); GC N.gonorrhoeae PCR,UrineVOID Not Detected (NotDetected)
== END 2023-02-08 21:02 | disposition home or self-care (01) ==
LOC: ERS 19:23
DX: A74.9 Chlamydial infection, unspecified (principal); F17.210 Nicotine dependence, cigarettes, uncomplicated
CPT/HCPCS: 87491; 87591; 96372; 99283; J0696